=== PATIENT | female | born 1985 | race Caucasian/White ===

== ENCOUNTER 2017-11-28 21:08 | Emergency (ER) | payer BC ==
[2017-11-28 21:50] LABS: URINE HCG POC HCG NEGATIVE (Negative)
[2017-11-28] MEDS: HYOSCYAMINE 0.125 MG TAB.RAPDIS PO (22:00)
[2017-11-28] MEDS: IV NORMAL SALINE 1000ML BAG 1,000 ML IV (22:00)
[2017-11-28] MEDS: KETOROLAC 30 MG/ML INJ. IV (22:00)
[2017-11-28 22:01] LABS: ADD MAN DIFF? NO
[2017-11-28 22:04] LABS: BILIRUBIN,URINE NEGATIVE (NEG); CLARITY,URINE CLEAR; COLOR,URINE YELLOW; GLUCOSE,URINE NEGATIVE (NEG); NITRITE,URINE NEGATIVE (NEG); PH,URINE 6.5; PROTEIN,URINE NEGATIVE (NEG-TRACE); UROBILINOGEN,URINE 0.2 mg/dL (0.2 mg/dL)
[2017-11-28 22:05] LABS: BASO % 0 % (0-3); EOS # 0.3 x10^3/uL (0.0-0.7); EOS % 4 % (0-3); HEMATOCRIT 41.7 % (36.0-47.0); HEMOGLOBIN 14.1 g/dL (12.0-15.5); LYMPH # 3.1 x10^3/uL (1.0-4.8); LYMPH % 32 % (24-48); MEAN CORPUSCULAR HEMOGLOBIN 29 pg (25-35); MEAN CORPUSCULAR HGB CONC 34 g/dL (31-37); MEAN CORPUSCULAR VOLUME 86 fL (79-100); MONO # 0.7 x10^3/uL (0.0-1.1); MONO % 7 % (0-9); NEUT # 5.6 x10^3uL (1.8-7.7); NEUT % 57 % (31-73); PLATELET COUNT 305 x10^3/uL (140-400); RED BLOOD COUNT 4.86 x10^6/uL (3.50-5.40); RED CELL DISTRIBUTION WIDTH 12.9 % (11.5-14.5); WHITE BLOOD COUNT 9.9 x10^3/uL (4.0-11.0)
[2017-11-28 22:11] LABS: ANION GAP 10 (6-14); BACTERIA,URINE 0 /HPF (0-FEW); BLOOD UREA NITROGEN 8 mg/dL (7-20); BUN/CREATININE RATIO 11 (6-20); CALCIUM 8.9 mg/dL (8.5-10.1); CARBON DIOXIDE 29 mmol/L (21-32); CHLORIDE 102 mmol/L (98-107); CREATININE 0.7 mg/dL (0.6-1.0); GFR 96.4; GLUCOSE 95 mg/dL (70-99); POTASSIUM 3.1 mmol/L (3.5-5.1); RBC,URINE 0 /HPF (0-2); SODIUM 141 mmol/L (136-145); SQUAMOUS EPITHELIAL CELL,UR FEW /LPF; WBC,URINE RARE /HPF (0-4)
[2017-11-28 22:16] LABS: ALBUMIN 3.8 g/dL (3.4-5.0); ALK PHOS 63 U/L (46-116); ALT (SGPT) 20 U/L (14-59); AST (SGOT) 13 U/L (15-37); LIPASE 189 U/L (73-393); TOTAL BILIRUBIN 0.4 mg/dL (0.2-1.0); TOTAL PROTEIN 7.6 g/dL (6.4-8.2)
[2017-11-28] MEDS: IOHEXOL 300 MG/ML 100ML VIAL. IV (22:21)
[2017-11-28] MEDS ORDERED: CONTRAST GIVEN MC (22:30)
== END 2017-11-29 00:19 | disposition home or self-care (01) ==
LOC: ER 11-29 00:19
DX: K52.9 Noninfective gastroenteritis and colitis, unspecified (principal); R14.3 Flatulence; F17.200 Nicotine dependence, unspecified, uncomplicated
CPT/HCPCS: 36415; 74177; 80053; 81001; 81025; 83690; 85025; 96361; 96374; 99285-25; J1885; J7030; Q9967